=== PATIENT | male | born 1975 | race Caucasian/White ===

== ENCOUNTER 2024-06-17 01:39 | Emergency (ER) | payer OTHER ==
[~2024-06-17] VITALS: Ht 193 cm; Wt 109.1 kg
--- NOTE | 2024-06-17 01:52 | NUR ---
DR BENNETT AT BEDSIDE TO ASSESS PATIENT
--- NOTE | 2024-06-17 02:01 | NUR ---
PT PROVIDED WITH WATER PITCHER
[2024-06-17] MEDS: ibuprofen tablet 400 MG TABLET PO ONE (02:11)
[2024-06-17] MEDS: acetaminophen 325mg tablet PO ONE (02:11)
[2024-06-17] MEDS: TETanus/Pertussis (Acell)/Diphther VAC/PF (Tdap-Adult) 0.5ml syringe IMVAC ONE (02:12)
[2024-06-17] MEDS: mupirocin 2% ointment 22GM TP ONE (02:12)
[2024-06-17] MEDS: LIDOcaine/PRILOcaine 5gm cream TP ONE (02:12)
--- NOTE | 2024-06-17 03:07 | NUR ---
DR BENNETT CONSULTED WITH [facility] REGARDING PTS BURN ON RIGHT HAND.
[2024-06-17 03:56] VITALS: BP 167/108; PULSE 87; RESP 16; TEMP 98; O2SAT 98
== END 2024-06-17 03:58 | disposition home or self-care (01) ==
LOC: ER 01:40
DX: T23.331A Burn of third degree of multiple right fingers (nail), not including thumb, initial encounter (principal); T24.322A Burn of third degree of left knee, initial encounter; T59.811A Toxic effect of smoke, accidental (unintentional), initial encounter; R05.9 Cough, unspecified; M25.562 Pain in left knee; Z23 Encounter for immunization; V49.9XXA Car occupant (driver) (passenger) injured in unspecified traffic accident, initial encounter; Y93.89 Activity, other specified; Y92.89 Other specified places as the place of occurrence of the external cause; Y99.8 Other external cause status
CPT/HCPCS: 16020; 71045; 73564; 90471; 90715; 99284; A6222; A6258; A6449